=== PATIENT | male | born 1960 | race Caucasian/White ===

== ENCOUNTER → 2018-07-23 11:42 | Outpatient (CLI) | payer OTHER, SELFPAY ==
--- NOTE | 2018-07-23 | DI.US.S_ITS ---
PROCEDURE: US PERIPH VENOUS LOW EXTREM LT INDICATIONS: LEFT LEG SWELLING TECHNIQUE: Real-time imaging, as well as color and pulse Doppler interrogation, were performed of the lower extremity deep veins from the inguinal ligament to the popliteal fossa. COMPARISON: None. FINDINGS: There are occlusive filling defects involving the [id number] superficial femoral vein and popliteal vein consistent with deep venous thrombosis. IMPRESSION: Deep venous thrombosis involving the superficial femoral vein and popliteal vein. Dr. Ma was informed of the result by Pellet [employer] Operator Alexus on 07/23/2018 at 1235 hours. Dictated by: Gregorio Briggs M.D. on 07/23/2018 at 12:31 Approved by: Gregorio Briggs M.D. on 07/23/2018 at 18:08
== END ==
PROVIDERS: Family Provider Family Medicine; PCP Family Medicine; Visit Provider Family Medicine
DX: I82.432 Acute embolism and thrombosis of left popliteal vein (principal); I82.412 Acute embolism and thrombosis of left femoral vein
CPT/HCPCS: 93971

== ENCOUNTER 2018-07-30 09:50 | Observation (INO) | payer OTHER, SELFPAY ==
--- NOTE | 2018-07-30 | DI.CT.S_ITS ---
PROCEDURE: CT ANGIO CHEST PE PROTOCOL INDICATIONS: DVT/COUGH TECHNIQUE: After the administration of intravenous contrast, 2 mm thick sections acquired from the pulmonary apices to the posterior costophrenic angles. 3-dimensional maximum intensity projection (MIP) coronal and sagittal reformats were then acquired through the thorax. For radiation dose reduction, the following was used: automated exposure control, adjustment of mA and/or kV according to patient size. COMPARISON: None. FINDINGS: Image quality: Excellent. Pulmonary arteries: Nonocclusive thrombus is present within the distal aspect of the right main pulmonary artery. Partially occlusive thrombus is present within the distal aspect of the left main pulmonary artery. Nonocclusive thrombus is present bilaterally within the segmental and subsegmental branches of the pulmonary arteries. Lungs and pleura: Lungs are clear. No pleural effusions or pneumothorax. Central and peripheral airways are patent. Mediastinum: Heart size is normal, without pericardial effusion. No leftward bowing of the interventricular septum to suggest right heart strain. No mediastinal or hilar adenopathy. Thoracic aorta is normal in caliber and enhancement. Esophagus is normal in caliber, without hiatal hernia. Bones and chest wall: No suspicious bony lesions. Ribs and thoracic spine appear intact throughout. Thyroid gland is unremarkable. No axillary or supraclavicular adenopathy. Abdomen: Visualized upper abdominal solid organs appear normal in the early arterial phase of enhancement. IMPRESSION: 1. Partially occlusive thrombus within the bilateral main pulmonary arteries with nonocclusive thrombus in the segmental and subsegmental branches bilaterally. 2. No leftward interventricular septal bowing to suggest right heart strain. These findings were discussed with Dr. Sanders at 9:31 AM on 07/30/18. Dictated by: Rosalinda Flaherty M.D. on 07/30/2018 at 9:25 Approved by: Rosalinda Flaherty M.D. on 07/30/2018 at 9:31
[2018-07-30 10:37] VITALS: BMI 35.4
--- NOTE | 2018-07-30 11:15 | PC.NURSE ---
PT ADMITTED TO ICU ROOM [facility] ACUTE CARE PT. HE HAS BILAT PE'S (NON OBSTRUCTING) AND RECENT HX. DVT LEFT LOWER EXTREMITY- SLIGHTLY HYPERTENSIVE UPON ADMISSION 129/90, DENIES PAIN AND OR SOB- DID REPORT RECENT COUGHING.
[2018-07-30 11:18] VITALS: BP 129/90; PULSE 87; RESP 14; TEMP 36.6; O2SAT 98
[2018-07-30] MEDS: INFLUENZA VACCINE 0.5 ML SYRINGE IM (11:23)
[2018-07-30] MEDS: ENOXAPARIN 100 MG/ML SYRINGE SUBCUT ×2 (13:06→20:43)
[2018-07-30] MEDS: ENOXAPARIN 30 MG/0.3 ML SYRINGE SUBCUT ×2 (13:07→20:43)
[2018-07-30 13:15] VITALS: PULSE 79; RESP 14; O2SAT 97
--- NOTE | 2018-07-30 13:20 | P.HP_ITS ---
History of Present Illness Date Patient Seen: 07/30/18 Time Patient Seen: 13:20 Chief complaint: DVT/COUGH Narrative: Patient seen in response to increasing left leg pain and cough. Patient was diagnosed with DVT last week and started on Coumadin. No bridging. He has been progressively getting increasing thigh pain with redness and has been having an increasing cough which has worsened over the last 48 hr. Patient has had left leg pain since maybe late May. He has no history of travel. No history of trauma. No history of surgery. Has otherwise been feeling well without significant other complaints or problems. No previous history of DVTs or other clotting abnormalities. No family history of any significant abnormalities. Patient had ultrasound last week which showed a left-sided DVT. He really was only having pain in his calf at that time. Over the last week his slowly been increasing in pain and swelling in his inside of his thigh on the left side. Did not seem to be getting any better. Has not been able to sleep. No other changes. No fevers or chills. No headaches. Patient's cough started he thinks after he started noticing his left calf discomfort. He has no other significant new changes. He has had no changes but has been coughing both day and night. Over the last 48 hr that seems to be getting worse more intense. Had some mild shortness of breath but has had no chest pain or other changes. Has not had any production. It has been a very weird cough for him. No other changes. Patient had been placed on Coumadin last week. Yesterday was started on Eliquis had 1 dose this morning. Dose was supposed to be 10 mg twice a day for a week and then 5 mg twice a day. No other changes. Patient otherwise has no significant new complaints or problems. Past medical history. History of skin cancer squamous and basal cell History of hyperlipidemia History of polyneuropathy etiologies unclear primarily affecting his feet Past surgical history 2006 meniscus tear with surgical repair Family history significant for alcoholism in both mother and father, mother with history of colon cancer age 57, father CVA with at 69. Father had diabetes. Mother had heart disease at 42. Sister 10 months older hypertension gallbladder disease Social history [employer] manager, , no children, bachelor of arts. Habits occasional alcohol, no tobacco no other drugs. Patient History Social History household members: spouse Smoking Status: Never smoker Family & Social History Social History: household members spouse Prior Living Arrangements House Safety & Behavioral: Feels Safe in Current Yes Environment Been Physically Hurt or No Threatened By a Person Suicidal Ideation Description None Suicide Plan Description No Plan Tobacco & Substance use: Smoking Status Never smoker alcohol intake frequency holiday/special occasion Meds Home Medications Medication Instructions Recorded Confirmed Type atorvastatin [Lipitor] 20 mg PO HS #30 tab 04/03/16 07/30/18 History apixaban [Eliquis] 10 mg PO BID 07/30/18 07/30/18 History Allergies Allergy/AdvReac Type Severity Reaction Status Date / Time No Known Drug Allergies Allergy Verified 07/30/18 11:12 Review of Systems Review of Systems All systems reviewed & are unremarkable except as noted in HPI and below Exam Vital Signs (past 8 hours): - 07/30/18 11:18 Temperature 97.9 F Pulse Rate 87 Respiratory Rate 14 Blood Pressure 129/90 Pulse Oximetry 98 Oxygen Delivery Method Room Air Oxygen Flow Rate 0 Narrative Exam Narrative: Alert obese male in no acute distress. Mucous membranes are moist. Neck supple without adenopathy JVD or bruits. Lungs are clear. Heart's regular rate and rhythm without murmurs clicks rubs or gallops. Abdomen is soft positive bowel sounds nontender. Extremities right is normal left shows calf tenderness with moderate swelling no cords that I can palpate. He has got erythema on the medial aspect of the thigh with tenderness up to almost the groin. No definitive swelling otherwise. Normal pulses. No edema. Neurologic exam is unremarkable. Psychologically mildly fatigued but otherwise unremarkable Objective Labs Labs: Laboratory Results - last 24 hr 07/30/18 11:00 Nasal Screen MRSA (PCR) Negative for mrsa Assessment & Plan Assessment & Plan narrative: Bilateral pulmonary embolus with partial obstr uction of main pulmonary arteries bilateral by CT scan. We discussed this. Patient is clearly worsened over the last week with increasing leg pain and now worsening cough which probably is his pulmonary embolus. Unsure how long they have been definitively present but certainly concerned that these may be life- threatening. Had started on Eliquis yesterday which takes at least 24 hr to get started. Discussed with pharmacist will place on Lovenox for the next day or 2 get things started on his anticoagulation then begin Eliquis again as of the dose when Lovenox is due. Currently pulmonary stable. Does not appear to be in cardiac issues but will obtain EKG. Will place on monitor and follow closely hopefully will be able to discharge in the next 48 hr. Patient will need hematologic evaluation for non provoked pulmonary embolus and DVT. We will be able to do as outpatient. DVT left leg treatment with Lovenox and then Eliquis as above. History of hypercholesterolemia. Will place on usual medicine. History of polyneuropathy not an issue at this time. GI prophylaxis not indicated at this time. Disposition. Patient is at significant risk for terminal illness will cover with Lovenox and watch closely. Hopefully discharge in the next 48 hr. Quality VTE Deep Vein Thrombosis/Pulmonary Embolism Present on Admission: Yes
[2018-07-30 16:00] VITALS: BP 119/80; PULSE 76; RESP 20; TEMP 37.4; O2SAT 95
[2018-07-30 16:20] VITALS: BP 129/83; PULSE 76; RESP 20; TEMP 36.9; O2SAT 96
[2018-07-30 16:49] VITALS: O2SAT 96
--- NOTE | 2018-07-30 18:05 | PC.NURSE ---
1620: pt arrived from ICU. A&OX3. 96%RA. denied pain, SOB or nausea. no calf pain. PP++. CMS+. oriented pt to the room. call light in reach.
[2018-07-30] MEDS: ATORVASTATIN 20 MG TABLET PO (20:42)
[2018-07-30 20:52] VITALS: BP 113/72; PULSE 72; RESP 18; TEMP 36.8
[2018-07-31] VITALS (9 sets, daily range): BP systolic 105–123; BP diastolic 60–75; PULSE 69–78; RESP 16–18; TEMP 36.6–37.2; O2SAT 95–98
[2018-07-31 06:22] LABS: Add Manual Diff / Slide Review NO; Basophils Absolute Auto 100 /uL (0-100); Eosinophils Absolute Auto 300 /uL (0-450); Eosinophils Percent Auto 4.2 % (2-4); Hematocrit 40.9 % (41-53); Hemoglobin 13.5 g/dL (13.5-17.5); Lymphocytes Absolute Auto 1300 /uL (1100-4500); Lymphocytes Percent Auto 20.3 % (25-40); Mean Corpuscular Hemoglobin 30.1 PG (26-34); Mean Corpuscular Volume 91.3 fL (80-100); Monocytes Absolute Auto 800 /uL (0-900); Monocytes Percent Auto 12.7 % (3-14); Neutrophils Absolute Auto 3800 /uL (1500-7000); Neutrophils Percent Auto 61.8 % (50-75); Platelet Count 379 X10^3/uL (150-400); Red Blood Cell Count 4.48 X10^6/uL (4.5-5.9); Red Cell Distribution Width 12.6 % (11.6-14.8); White Blood Cell Count 6.2 X10^3/uL (4.5-11.0)
[2018-07-31] MEDS: SODIUM CHLORIDE 0.9% FLUSH 10 ML IV ×2 (08:23→20:42)
[2018-07-31] MEDS: ENOXAPARIN 100 MG/ML SYRINGE SUBCUT ×2 (08:23→20:41)
[2018-07-31] MEDS: ENOXAPARIN 30 MG/0.3 ML SYRINGE SUBCUT ×2 (08:23→20:41)
--- NOTE | 2018-07-31 08:55 | P.PN_ITS ---
Subjective Date Patient Seen: 07/31/18 Time Patient Seen: 08:52 Interval history: Feels fine, no chest pain or breathing issues has been up and around with no problems no other complaints. Exam Vital Signs (past 8 hours): - 07/31/18 01:10 07/31/18 06:00 07/31/18 08:15 Temperature 97.9 F Pulse Rate 69 Respiratory Rate 18 Blood Pressure 117/69 Pulse Oximetry 95 97 96 07/31/18 08:24 Temperature 98.6 F Pulse Rate 74 Respiratory Rate 18 Blood Pressure 121/73 Pulse Oximetry 96 Oxygen Delivery Method Room Air Oxygen Flow Rate 0 Narrative Exam Narrative: Healthy appearing lying quietly no distress appropriately interactive. HEENT unremarkable neck is benign chest is clear heart has a regular rate and rhythm without murmur abdomen soft nontender nondistended no organomegaly or mass no bruit extremities benign neurologically not focal Objective Labs Result Diagrams: 07/31/18 06:07 Labs: Laboratory Results - last 24 hr 07/30/18 07/31/18 11:00 06:07 WBC 6.2 RBC 4.48 L Hgb 13.5 Hct 40.9 L MCV 91.3 MCH 30.1 MCHC 33.0 RDW 12.6 Plt Count 379 Neut % (Auto) 61.8 Lymph % (Auto) 20.3 L [place] % (Auto) 12.7 Eos % (Auto) 4.2 H Baso % (Auto) 1.0 Neut # (Auto) 3800 Lymph # (Auto) 1300 [place] # (Auto) 800 Eos # (Auto) 300 Baso # (Auto) 100 Nasal Screen MRSA (PCR) Negative for mrsa Assessment & Plan Assessment & Plan narrative: Pulmonary embolus, bilateral, without apparent risk factors. Continue Lovenox plan on starting Eliquis tomorrow morning and then discharged at that time. DVT, this was more symptomatic presumably could contributed to above although timing is a little uncertain. Continue same as noted. Coagulopathy suspected. As noted patient above has no typical risk factors so suspect an underlying pathology of some sort. Will evaluate as an outpatient. Time Spent With Patient Time with patient: 15-24 minutes Quality VTE Deep Vein Thrombosis/Pulmonary Embolism Present on Admission: Yes
[2018-07-31] MEDS: ATORVASTATIN 20 MG TABLET PO (20:41)
[2018-08-01 06:00] VITALS: BP 112/72; PULSE 111; RESP 18; TEMP 36.5; O2SAT 98
[2018-08-01 06:43] VITALS: PULSE 71; O2SAT 98
[2018-08-01] MEDS: SODIUM CHLORIDE 0.9% FLUSH 10 ML IV (08:16)
[2018-08-01] MEDS: APIXABAN 5 MG TABLET 10 MG PO (08:16)
--- NOTE | 2018-08-01 08:52 | CM.DANOTE ---
Discharge Planning/Care Management DCP: case received, EMR reviewed and including Dr. Dorsey's progress note and plan. Pt is a 58 year old male who admitted yesterday to care of PCP: Dr. Esparza. Payer: [employer]. Pt is being treated for bilateral PEs with plan to transition from Lovenox to Eliquis and home with outpt clinic followup. He is up independently in room. P: will follow prn for any needs that may arise at d/c but at this point anticipate he will d/c to home here in [place] as per above. CM Discharge Assessment Start: 08/01/18 08:51 Freq: Status: Active Protocol: Document 08/01/18 08:51 ITV (Rec: 08/01/18 08:52 ITV [id number]) Discharge Planning Assessment Advance Directives? No History Provided By Patient Significant Other Prior Living Arrangements House Household Members spouse Independent with ADL's Yes Is patient alert and oriented? Yes Review Status In Process Next Review Type Continued Stay Review
[2018-08-01 10:00] VITALS: BP 137/77; PULSE 80; RESP 18; TEMP 36.6; O2SAT 99
--- NOTE | 2018-08-01 10:52 | PM.DS.1 ---
History of Present Illness Date Patient Seen: 08/01/18 Time Patient Seen: 10:52 Chief complaint: DVT/COUGH Narrative: See H&P Discharge Providers Date of admission: 07/30/18 09:50 Primary care physician: Duncan Esparza MD Discharge provider: Rohan Dorsey MD Discharge Date: 08/01/18 Summary Discharge Diagnosis: Lower extremity DVT Bilateral pulmonary emboli Cough Hyperlipidemia Hospital Course: Patient had been found week before with DVT after complaints of leg pain. Although no significant risk factors were identified. Was started on Coumadin. The next week he was seen and complained of a persistent cough a chest CT that suggested bilateral pulmonary emboli. He had no complaints of shortness of breath or chest pain has otherwise felt well. Throughout the hospitalization this has remained still with a bit of a cough that is more nagging, and dry, but no other symptoms. Has been up and around without restriction. Again no significant apparent family history, except that his father after multiple CVAs, and his mother in her 50s of CAD. Had been treated with Lovenox therapeutic dosing from admission to the night before discharge then the morning of discharge was placed on the starting dose of Eliquis. Stable otherwise as far as vital signs SaO2 etc. Status at Discharge Cognitive/behavioral status at discharge: No change Functional status at discharge: independent ambulation Time Spent with Patient Greater than 30 minutes Exam Vital Signs (past 8 hours): - 08/01/18 06:00 08/01/18 06:43 08/01/18 10:00 Temperature 97.7 F 97.8 F Pulse Rate 111 H 71 80 Respiratory Rate 18 18 Blood Pressure 112/72 137/77 Pulse Oximetry 98 98 99 Oxygen Delivery Method Room Air Oxygen Flow Rate 0 Objective Labs Result Diagrams: 07/31/18 06:07 Discharge Plan Discharge Plan Patient Disposition: Home Discharge comment: stable Discharge Med Rec/Prescriptions Prescriptions: Continued atorvastatin [Lipitor] 20 MG tablet 20 mg PO HS Qty: 30 RF: 0 Eliquis 5 mg Tablet 10 mg PO BID RF: 0 Follow up/Referrals: Duncan Esparza MD [Primary Care Provider] - 3-5 Days Provider Discharge Instructions Diet: Diet as Tolerated Activity: as jose david Discharge Data Primary Care Provider: Duncan Esparza Attending Provider: Duncan Esparza Admit Date/Time: 07/30/18 09:50 Quality VTE Deep Vein Thrombosis/Pulmonary Embolism Present on Admission: Yes
== END 2018-08-01 11:45 | disposition home or self-care (01) ==
LOC: ICU 11:01 → AC 07-31 07:31
PROVIDERS: Admitting Provider Family Medicine; Family Provider Family Medicine; PCP Family Medicine; Visit Provider Family Medicine
DX: I26.99 Other pulmonary embolism without acute cor pulmonale (principal); R05 Cough; I82.412 Acute embolism and thrombosis of left femoral vein; M79.652 Pain in left thigh; E78.00 Pure hypercholesterolemia, unspecified; Z23 Encounter for immunization
CPT/HCPCS: 36415; 71275; 85025; 87797; 90471; 90656; 93005; G0378; G0379; J1650; Q2038; Q9967

== ENCOUNTER → 2018-09-03 14:01 | Outpatient (CLI) | payer OTHER, SELFPAY ==
--- NOTE | 2018-09-03 14:04 | DI.US.S_ITS ---
PROCEDURE: US PERIP VENOUS LOW EXTREM LT INDICATIONS: FOLLOW-UP DVT TECHNIQUE: Real-time imaging, as well as color and pulse Doppler interrogation, were performed of the lower extremity deep veins from the inguinal ligament to the popliteal fossa. COMPARISON: [facility], [facility] VENOUS LOW EXTREM LT, 07/23/2018, 12:03. FINDINGS: Deep venous thrombosis is now seen involving the proximal, mid and distal left superficial femoral as well as the popliteal vein. IMPRESSION: The known left lower extremity deep venous thrombosis now seen involving the entire course of the superficial femoral as well as the popliteal vein where there is partial thrombus. Dictated by: Nicho Jackson [facility] Interpreted: Brendon Denise MD on 09/03/2018 at 14:36 Approved by: Brendon Denise M.D. on 09/03/2018 at 16:12
== END ==
PROVIDERS: PCP Family Medicine
DX: I82.412 Acute embolism and thrombosis of left femoral vein (principal); I82.432 Acute embolism and thrombosis of left popliteal vein; I26.99 Other pulmonary embolism without acute cor pulmonale
CPT/HCPCS: 93971

== ENCOUNTER → 2020-03-29 10:00 | Oncology outpatient (ONC) | payer OTHER, SELFPAY ==
[2018-09-02 12:44] VITALS: BP 143/88; PULSE 72; RESP 18; TEMP 36.8; O2SAT 98
--- NOTE | 2018-09-02 13:37 | P.CONONC_ITS ---
History of Present Illness - Data of Consult Patient: new to practice Consult date: 09/02/18 Primary Care Provider: Duncan Esparza MD - Consult Narrative Narrative: Diagnosis: Left lower extremity DVT and pulmonary embolism diagnosed July 2018 History of present illness: Ruyd Sumner is a 58 year old male who is referred for further evaluation of a recent thromboembolism. The patient notes that he had some pain and swelling in his left lower extremity had been sent for a couple of months. He was seen by his primary physician and had an ultrasound performed. It demonstrated extensive DVT involving the superficial femoral vein and popliteal vein. He also had some cough. Because of that a CT pulmonary angiogram was done. It did demonstrate subsegmental emboli and nonocclusive emboli in the main pulmonary arteries. He was treated with Lovenox followed by Giovanna. He reports that he has been tolerating the Eliquis well. He has not had any epistaxis. He has noted occasional bleeding from his gums. No blood in the urine or stool. He has not noticed any increased bruising. His breathing has returned to baseline. He is not having any cough for chest pain. He does still have some swelling and erythema in his left leg. The pain has resolved though. He denies any prior history of clotting. He does not smoke. He did not have any recent trauma or immobilization. There is no family history of thrombosis. His current medications include Eliquis and Lipitor. Social history: He is . He works at the [employer] supervising the [employer]. He does not smoke. He does have occasional alcohol use. He also is other sports coach or instructor. Family history is negative for any thromboembolism. His mother did have cancer. His past medical history is notable for high cholesterol. He has had neuropathy involving his feet. He has had prior arthroscopic knee surgery about 10 years ago. He has otherwise been quite healthy. CC: Flaco Aguilera MD Home Medications and Allergies Home Medications Medication Instructions Recorded Confirmed Type atorvastatin [Lipitor] 20 mg PO HS #30 tab 04/03/16 07/30/18 History Eliquis 10 mg PO BID 07/30/18 07/30/18 History Allergies Allergy/AdvReac Type Severity Reaction Status Date / Time No Known Drug Allergies Allergy Verified 07/30/18 11:12 Medical History - Social History Smoking Status: Never smoker Review of Systems Constitutional: fair state of general health, able to conduct usual activities Cardiovascular: no chest pain, no syncope, no dyspnea on exertion Respiratory: no cough Gastrointestinal: no change in appetite Musculoskeletal: swelling, redness Integumentary: no bleeding or bruising Exam Vital signs: Vital Signs Temp Pulse Resp BP Pulse Ox 09/02/18 12:44 98.2 F 72 18 143/88 H 98 Intake and Output 09/01/18 09/02/18 09/02/18 23:59 07:59 15:59 Other: Weight 133.5 kg Patient Weight 09/02/18 23:59 Weight 133.5 kg - Constitutional positive no acute distress, positive obese - Routine HEENT Exam Head: Present: normocephalic, atraumatic Eye: Present: EOMI, PERRL. Absent: conjunctival icterus, scleral injection ENT: Present: mucous membranes moist, oropharynx clear, dentition normal - Routine Neck Exam Present: supple. Absent: lymphadenopathy, thyromegaly - Routine Respiratory Exam Present: Clear to auscultation bilaterally. Absent: rales, wheezes - Routine Cardiovascular Exam Present: RRR, S1, S2. Absent: murmur - Routine Abdominal Exam Present: soft, normoactive bowel sounds. Absent: tenderness, organomegaly, mass - Routine Extremities Exam Comments: His left lower extremity has 2+ edema extending up to the knee. There is some redness of the skin. There is no tenderness to palpation and no palpable cords. - Routine Back/Spine Exam Back/Spine: Absent: paraspinal tenderness, vertebral tenderness - Routine Skin Exam Present: intact. Absent: petechiae, wounds - Routine Neurological Exam Present: alert, oriented X3 - Routine Psychiatric Exam Present: normal affect, normal thought process Assessment and Plan (1) Thromboembolism Current visit: Yes Status: Acute 58-year-old man with an unprovoked left lower extremity DVT and pulmonary embolism. He is tolerating his anticoagulation well with resolution of his pulmonary symptoms. He still has some swelling and erythema the leg. He did not have any identifiable risk factor in his family history is negative. Fabiolalucho jose this was an unprovoked episode and because of his age in male sex, I think his likelihood of recurrence after short course of anticoagulation is sufficiently high to warrant indefinite treatment. Even if hypercoagulable testing was negative, I think that I would still recommend that he continue on with therapy. He does have some ongoing symptoms in his legs that are suggestive of a post phlebitic syndrome. We will plan on rechecking an ultrasound just to make sure that there has been improvement. Will also make a referral to physical therapy. I think that he would benefit from a compression dressing or stocking. I also recommend that he try to elevate his leg as much as possible. I think it is safe for him to resume exercise as tolerated. I did recommend that he try to avoid prolonged immobilization if he does travel in the near future. He will return to clinic after his ultrasound for follow-up.
--- NOTE | 2018-09-03 17:22 | PC.NURSE ---
Pt phoned to express concern r/t to recent ultra sound, according to pt he was under the impression his LLE clot was getting longer. PT denies increased swelling since seen by provider yesterday, denies increased tenderness or redness, or temperature increase to affected extremity. Explained to pt that this brief writer was able to view recent US result because they were not available yet. Pt reports he his currently on anticoagulation therapy. Denies chest pain and SOB. Instructed pt to call primary provider, pt states I left him a message on the portal. Pt further states they are good at getting back to me. Reviewed s/s of PE and when to seek emergency medical treatment, pt verbalizes understanding, states oh, I know. Pt agrees to call Dr. Sanders's office in the morning if his message has not been returned before that time. Pt also agreeable to seek emergency treatment if symptoms increase to LLE.
--- NOTE | 2018-09-08 09:51 | ONC.NAV ---
Description: New Pt Intro Activity: Met with pt to introduce myself as the Pt [employer] SCIENC[employer], offer services card, and establish initial rapport. Pt presents as irritable, expressing feeling frustrated that the swelling in his leg hasn't gone down, yet it hasn't slowed him down in his ADL's. 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 [employer] SCIENC[employer] TEACHER briefly explained the availability of navigation, resource assistance and support. He denied the need for assistance at this time. Plan: Monitor for ongoing assistance needs.
[2018-09-08 09:53] VITALS: BP 144/109; PULSE 64; RESP 16; TEMP 37.1; O2SAT 98
--- NOTE | 2018-09-08 10:28 | ONC.SCHED ---
PT referral-patient was referred to be fitted for compression sock. PT does not do that and [facility] was kind enough to bring up information on who they thought could do that for the patient. I gave the information to the patient at his / visit with Dr. Aguilera.
--- NOTE | 2018-09-08 12:55 | ONC.PN ---
PN -Subjective Interval history: Diagnosis: Left lower extremity DVT and pulmonary embolism diagnosed July 2018 Previous treatment: Low molecular weight heparin followed by [facility]. He is currently on 5 mg b.i.d. Interval history: Patient returns today for follow-up. Since his last visit here, he has been bothered by ongoing swelling in his left lower extremity. It has not been painful. He has been able to go about all of his normal activities. He does have some dusky coloration to the skin but no erythema. He is not having any claudication symptoms. No fevers chills or sweats. No shortness of breath cough chest pain dizziness or lightheadedness. Appetite and energy level have been stable. No GI complaints. He has not noticed any unusual bleeding or bruising. He has not had any other bleeding complaints. His past medical history is notable for high cholesterol. He has had neuropathy involving his feet. He has had prior arthroscopic knee surgery about 10 years ago. He has otherwise been quite healthy. His medications include only Lipitor and Eliquis. Home Medications and Allergies Home Medications Medication Instructions Recorded Confirmed Type atorvastatin [Lipitor] 20 mg PO HS #30 tab 04/03/16 09/08/18 History Eliquis 10 mg PO BID 07/30/18 09/08/18 History Allergies Allergy/AdvReac Type Severity Reaction Status Date / Time No Known Drug Allergies Allergy Verified 07/30/18 11:12 Exam Vital signs: Vital Signs Temp Pulse Resp BP Pulse Ox 09/08/18 09:53 98.8 F 64 16 144/109 H 98 Intake and Output 09/07/18 09/08/18 09/08/18 23:59 07:59 15:59 Other: Weight 133.6 kg Patient Weight 09/08/18 23:59 Weight 133.6 kg - Routine Extremities Exam Present: edema Comments: He does have 2+ lower extremity edema on the left. There is no tenderness to palpation. I do not feel any cords. Assessment and Plan (1) Thromboembolism Current visit: Yes Status: Acute 58-year-old man with an unprovoked left lower extremity DVT and pulmonary embolism. He is tolerating his anticoagulation well with resolution of his pulmonary symptoms. He still has some swelling and erythema the leg. His lower extremity ultrasound demonstrated some progression of his superficial femoral vein thrombosis in to the proximal portion from the mid and distal previously. We reviewed the natural history of thromboembolism. I did point out that the goal of anticoagulation was to prevent propagation recurrence of clots and to allow the normal organization of clot process to occur it appears that in his case, there has been extension of the clot despite anticoagulation with Eliquis. The optimal treatment of failure of anticoagulation is not known. We discussed the option of adding aspirin to the Eliquis, changing to low-molecular weight heparin or changing to Coumadin. Because of his large size, I think it is reasonable to check anti Xa level to make sure that his dosing is therapeutic. 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 He does have an appointment pending with physical therapy for further evaluation of that and for fitting of a compression garment. He will return to clinic here in 1 week for follow-up. A 25 min was spent with the patient and his , the majority in counseling.
[2018-09-29 15:34] VITALS: BP 124/89; PULSE 64; RESP 18; TEMP 36.7; O2SAT 98
--- NOTE | 2018-09-29 15:57 | ONC.PN ---
PN -Subjective Interval history: Diagnosis: Left lower extremity DVT and pulmonary embolism diagnosed July 2018 Previous treatment: Low molecular weight heparin followed by [facility]. He is currently on 5 mg b.i.d. Interval history: Patient returns today for follow-up. Since his last visit here, he has been feeling better. He did get fitted for a compression stocking on his leg. He has been wearing it during the days. The swelling in his feet and legs has improved. He is able to wear shoe more easily. He is not having any pain in the leg. He denies any shortness of breath cough for chest pain. He has not had any bleeding complications and denies any epistaxis or gingival bleeding. No blood in the urine or stool. No fevers chills or sweats. He denies any other changes in his health. He tells me that he is scheduled for some Mohs surgery for skin cancer. His past medical history is notable for high cholesterol. He has had neuropathy involving his feet. He has had prior arthroscopic knee surgery about 10 years ago. He has otherwise been quite healthy. His medications include only Lipitor and Eliquis. - Patient Self-Reported Symptoms SR Musculoskeletal issues: Muscle pain or cramps Home Medications and Allergies Home Medications Medication Instructions Recorded Confirmed Type atorvastatin [Lipitor] 20 mg PO HS #30 tab 04/03/16 09/29/18 History Eliquis 5 mg PO BID 07/30/18 09/29/18 History acetaminophen [Tylenol 8 Hour] 650 mg PO Q12H PRN 09/29/18 09/29/18 History aspirin [Aspir-81] 81 mg PO DAILY 09/29/18 09/29/18 History Allergies Allergy/AdvReac Type Severity Reaction Status Date / Time No Known Drug Allergies Allergy Verified 07/30/18 11:12 Exam Vital signs: Vital Signs Temp Pulse Resp BP Pulse Ox 09/29/18 15:34 98.1 F 64 18 124/89 98 Intake and Output 09/28/18 09/29/18 09/29/18 23:59 07:59 15:59 Other: Weight 135.4 kg Patient Weight 09/29/18 23:59 Weight 135.4 kg - Constitutional positive no acute distress, positive average body habitus - Routine Extremities Exam Comments: Limited exam of the lower extremity shows some mild to trace edema on the left. He does have some venous stasis changes in the skin. There is no ecchymoses or petechiae. There is no tenderness or palpable cords. Results - Labs Laboratory Last Values Ref Test (Refrig) 09/08/18 11:02 Assessment and Plan (1) Thromboembolism Current visit: Yes Status: Acute 58-year-old man with an unprovoked left lower extremity DVT and pulmonary embolism. He has been doing better with the addition of low-dose aspirin to his regimen. Anti factor Xa levels were therapeutic. The compression stocking seem to be helping his leg as well. He will continue with his current regimen. He will return to clinic in 6 months for follow-up.
[2019-03-31 15:25] VITALS: BP 136/88; PULSE 83; RESP 18; TEMP 36.8; O2SAT 97
--- NOTE | 2019-03-31 16:22 | ONC.PN ---
PN -Subjective Interval history: Diagnosis: Left lower extremity DVT and pulmonary embolism diagnosed July 2018 Previous treatment: Low molecular weight heparin followed by [facility]. He is currently on 5 mg b.i.d. Interval history: Patient returns today for follow-up. Since his last visit here, he has been feeling about the same. He continues to have some trouble with swelling in his legs. If he wears a compression stocking, that keeps it to a minimal amount. He is not having any pain in the leg. He denies any shortness of breath cough chest pain or dizziness. Appetite and energy level have been good. He has had some increased bruising and some minor bleeding. He occasionally has some bleeding from his gums when he floss is. He has had an episode of epistaxis that stopped. He has not noticed any blood in the urine or stool. He denies any other bleeding complications. He denies any other changes in his health. His past medical history is notable for high cholesterol. He has had neuropathy involving his feet. He has had prior arthroscopic knee surgery about 10 years ago. He has otherwise been quite healthy. His medications include only Lipitor and Eliquis. - Patient Self-Reported Symptoms SR Musculoskeletal issues: Joint pain or swelling SR Neuro issues: Numbness or tingling Home Medications and Allergies Home Medications Medication Instructions Recorded Confirmed Type atorvastatin [Lipitor] 20 mg PO HS #30 tab 04/03/16 03/31/19 History Eliquis 5 mg PO BID 07/30/18 03/31/19 History acetaminophen [Tylenol 8 Hour] 650 mg PO Q12H PRN 09/29/18 03/31/19 History aspirin [Aspir-81] 81 mg PO DAILY 09/29/18 03/31/19 History Allergies Allergy/AdvReac Type Severity Reaction Status Date / Time No Known Drug Allergies Allergy Verified 07/30/18 11:12 Exam Vital signs: Vital Signs Temp Pulse Resp BP Pulse Ox 03/31/19 15:25 98.3 F 83 18 136/88 97 Intake and Output 03/31/19 03/31/19 03/31/19 07:59 15:59 23:59 Other: Weight 138.3 kg Patient Weight 03/31/19 23:59 Weight 138.3 kg - Constitutional positive no acute distress, positive average body habitus - Routine HEENT Exam Head: Present: normocephalic, atraumatic Eye: Present: EOMI, PERRL. Absent: conjunctival icterus, scleral injection ENT: Present: mucous membranes moist, oropharynx clear - Routine Neck Exam Present: supple. Absent: lymphadenopathy, thyromegaly - Routine Respiratory Exam Present: Clear to auscultation bilaterally. Absent: rales, wheezes - Routine Cardiovascular Exam Present: RRR, S1, S2. Absent: murmur - Routine Abdominal Exam Present: soft, normoactive bowel sounds. Absent: tenderness, organomegaly, mass - Routine Extremities Exam Present: edema. Absent: cyanosis, clubbing Comments: He has 1+ lower extremity edema on the left. - Routine Skin Exam Present: intact. Absent: petechiae, rash - Routine Neurological Exam Present: alert, oriented X3 - Routine Psychiatric Exam Present: normal affect, normal thought process Results - Labs Laboratory Last Values Ref Test (Refrig) 09/08/18 11:02 Assessment and Plan (1) Thromboembolism Current visit: Yes Status: Acute 58-year-old man with an unprovoked left lower extremity DVT and pulmonary embolism. He will continue on indefinite anticoagulation. He will return to clinic in 1 year for follow-up.
[2020-03-29 10:25] VITALS: BP 146/83; PULSE 66; RESP 18; TEMP 36.9; O2SAT 98
--- NOTE | 2020-03-29 11:17 | P.PNONC_ITS ---
PN -Subjective Interval history: Diagnosis: Left lower extremity DVT and pulmonary embolism diagnosed July 2018 Previous treatment: Low molecular weight heparin followed by [facility]. He is currently on 5 mg b.i.d. Interval history: Patient returns today for follow-up. Since his last visit here, he has been feeling about the same. He continues to have some trouble with swelling in his legs. If he wears a compression stocking, that keeps it to a minimal amount. He is not having any pain in the leg. He denies any shortness of breath cough chest pain or dizziness. Appetite and energy level have been good. He has had some increased bruising and some minor bleeding. He occasionally has some bleeding from his gums when he floss is. He has had an episode of epistaxis that stopped. He has not noticed any blood in the urine or stool. He denies any other bleeding complications. He denies any other changes in his health. His past medical history is notable for high cholesterol. He has had neuropathy involving his feet. He has had prior arthroscopic knee surgery about 10 years ago. He has otherwise been quite healthy. His medications include only Lipitor and Eliquis. He is generally doing well and does not have any problems with pain, bleeding, localized weakness, fever, chills, nausea, vomiting, cough, shortness of breath, anorexia, unintended weight loss, mouth sores, trouble swallowing, rash, or other complaints. All other systems are negative Past medical history is reviewed from his previous notes. - Patient Self-Reported Symptoms SR Musculoskeletal issues: Joint pain or swelling SR Neuro issues: Numbness or tingling Home Medications and Allergies Home Medications Medication Instructions Recorded Confirmed Type atorvastatin [Lipitor] 20 mg PO HS #30 tab 04/03/16 03/29/20 History Eliquis 5 mg PO BID 07/30/18 03/29/20 History acetaminophen [Tylenol 8 Hour] 650 mg PO Q12H PRN 09/29/18 03/29/20 History aspirin [Aspir-81] 81 mg PO DAILY 09/29/18 03/29/20 History Allergies Allergy/AdvReac Type Severity Reaction Status Date / Time No Known Drug Allergies Allergy Verified 07/30/18 11:12 Exam Vital signs: Vital Signs Temp Pulse Resp BP Pulse Ox 03/29/20 10:25 98.4 F 66 18 146/83 H 98 Intake and Output 03/28/20 03/29/20 03/29/20 23:59 07:59 15:59 Other: Weight 138.5 kg Patient Weight 03/29/20 23:59 Weight 138.5 kg Narrative: There was no lymphadenopathy in the cervical, supraclavicular, axillary, inguinal femoral regions. Lungs were clear without wheezes or rales. Heart showed a regular rate and rhythm without murmur, gallop or rub. The abdomen is soft and nontender without organomegaly or masses. Results - Labs Laboratory Last Values Ref Test (Refrig) 09/08/18 11:02 Assessment and Plan (1) Thromboembolism Status: Acute 58-year-old man with an unprovoked left lower extremity DVT and pulmonary emb olism. He will continue on indefinite anticoagulation. He does not have any bleeding issues. We discussed the importance of wearing his support stocking. Will get him back here for follow-up in about 2 years. I explained this would be to assess new developments in anti thrombotic therapy and to make sure that no other medical conditions have developed.
== END ==
PROVIDERS: Family Provider Family Medicine; PCP Family Medicine; Visit Provider Internal Medicine
DX: Z09 Encounter for follow-up examination after completed treatment for conditions other than malignant neoplasm (principal); Z86.718 Personal history of other venous thrombosis and embolism; Z86.711 Personal history of pulmonary embolism; E78.00 Pure hypercholesterolemia, unspecified; Z79.01 Long term (current) use of anticoagulants
CPT/HCPCS: 36415; 85520; 99205; 99213; 99214; 99215

== ENCOUNTER 2022-09-20 09:39 | Day surgery (SDC) | payer OTHER, SELFPAY ==
[2022-09-20] VITALS (7 sets, daily range): BP systolic 96–156; BP diastolic 63–102; PULSE 52–74; RESP 15–17; TEMP 36.3–36.6; O2SAT 95–100; BMI 38.7
--- NOTE | 2022-09-20 | PATH_ITS ---
[facility] Accession Number: [id number] No. of containers..01 Tissue . 01 Material submitted: . rectum - RECTAL POLYPS . 01 Diagnosis: Rectal Polyps, Biopsy: Tubular adenoma x2. Hyperplastic polyp x1. MRV 09/24/2022 1241 Local . 01 Electronically signed: . Geovanna Mendes MD, Pathologist NPI- [id number] . 01 Gross description: . RECTAL POLYPS: Received in formalin are 3 fragment(s) of sumner, soft tissue measuring 0.5 x 0.2 x 0.1 cm to 0.2 x 0.2 x 0.1 cm submitted entirely in 1 cassette(s) /CPE 09/21/2022 0904 Local . 01 Pathologist provided ICD-10: D12.8 . 01 CPT . 674678 Specimen Comment: A courtesy copy of this report has been sent to [facility] Performed at: [address] [facility] [address] [place] [address], [place], [place] [id number] MD Carmelo Prater MD Phone: [phone]
[2022-09-20] MEDS: LACTATED RINGERS 1,000 ML 84 ML IV ×2 (10:08→12:26)
--- NOTE | 2022-09-20 12:24 | PM.HP.1 ---
History of Present Illness History of Present Illness Date Patient Seen: 09/20/22 Time Patient Seen: 12:24 Chief complaint: Screening Colonoscopy Narrative: Mr. Sumner presents today for his 4th colonoscopy, he believes last 3 were done here he is not sure but he thinks there were polyps. He does have a family history his mother had colon cancer. He is not having any concerning symptoms no bleeding or changes in bowel habits. He has no other questions and wants to proceed PFSH Social History household members: spouse Smoking Status: Never smoker Meds Home Medications and Allergies Home Medications Medication Instructions Recorded Confirmed Type atorvastatin 20 mg tablet (Lipitor) 20 mg PO HS #30 tabs 04/03/16 03/29/20 History apixaban 5 mg tablet (Eliquis) 5 mg PO BID 07/30/18 09/20/22 History acetaminophen 650 mg 650 mg PO Q12H PRN Pain (Scale 09/29/18 09/20/22 History tablet,extended release (Tylenol 8 Score 1-3) Hour) aspirin 81 mg tablet,delayed 81 mg PO DAILY 09/29/18 09/20/22 History release (Aspir-) losartan 100 mg PO DAILY 09/20/22 09/20/22 History Allergies Allergy/AdvReac Type Severity Reaction Status Date / Time No Known Drug Allergies Allergy Verified 07/30/18 11:12 Exam Vital Signs (past 8 hours): - 09/20/22 09:55 Temperature 97.3 F L Pulse Rate 74 Respiratory Rate 16 Blood Pressure 156/102 H Pulse Oximetry 98 Oxygen Delivery Method Room Air Oxygen Delivery Method Room Air Const General: cooperative, healthy appearing and comfortable Nutritional Appearance: obese Eyes General: appearance normal, both eyes and all related structures Resp Effort & Inspection: normal respiratory effort and able to speak in complete sentences GI Palpation: soft and No tender Assessment & Plan Assessment and plan (1) Family history of colon cancer in mother: Status: Acute (2) Screening for colon cancer: Status: Acute (3) History of colon polyps: Status: Acute Assessment & Plan narrative: Presents today for screening colonoscopy I discussed the risks benefits and alternatives including but not limited to perforation of the colon and an incomplete exam he fully understands these risks and would like to proceed.
--- NOTE | 2022-09-20 14:31 | PM.OP.COLON ---
Operative Date/Time/Diagnoses Date of procedure: 09/20/22 Time of procedure: 14:31 Pre-op diagnosis: Colon cancer screening, family history of colon cancer Post-op diagnosis: same Procedure & Clinicians Study performed: Colonoscopy and biopsy Same procedure as scheduled: Yes Indications: Colon cancer screening; family history of colon cancer in mother Surgeon: Hemalatha Ramires Procedure Notes Procedure in detail: Patient was taken to the endoscopy suite and placed in a left lateral decubitus position. A time-out was performed. Anesthesiologist induced and maintained conscious sedation throughout the procedure. A digital rectal exam was performed. There were no masses or strictures. Colonoscope was then introduced into the anal canal and advanced. The prep was good Chester bowel prep score of 2. I was able to advance the colonoscope almost all the way to the cecum but was not able to enter fully into the cecum. I did take a photograph and the ileocecal valve and appendiceal orifice are seen from afar. I spent in excess of 30 minutes attempting to intubate the cecum. We tried abdominal pressure, supine positioning and I even asked Dr. Springer my partner to give a try. An after all of these efforts we were still unable to enter the cecum. We did get fairly good views of the cecal area from afar and I think it is safe to say that there was no large polyp or colon cancer in this portion of the colon; however, smaller polyps very well may have been missed. I then withdrew the scope slowly from the right colon and expected the rest of the chronic mucosa for any other polyps. There were 2 separate rectal polyps that were small both of which were removed in total and sent together in 1 specimen jar. The scope was then retroflexed in the hemorrhoidal piles looked normal. Patient tolerated the procedure well and went in good condition to the postoperative care unit. Findings: polyp(s) Specimen(s): other (1. Rectal polyps) Complications: other (Incomplete exam) Post-procedure Plan for aftercare: Repeat colonoscopy in 1-2 years. Recommend follow-up with aeronautical engineer if possible.
== END 2022-09-20 15:05 | disposition home or self-care (01) ==
PROVIDERS: Family Provider Family Medicine; PCP Family Medicine; Referring Provider Surgery; Visit Provider Surgery
PROC: 0DJD8ZZ Inspection of Lower Intestinal Tract, Via Natural or Artificial Opening Endoscopic (ICD-10-PCS; CPT 45378; principal; 2022-09-20 10:45)
DX: Z12.11 Encounter for screening for malignant neoplasm of colon (principal); Z80.0 Family history of malignant neoplasm of digestive organs; D12.8 Benign neoplasm of rectum
CPT/HCPCS: 45380; J2704; J3010

== ENCOUNTER → 2022-12-24 10:20 | Outpatient (CLI) | payer OTHER, SELFPAY ==
--- NOTE | 2022-12-24 10:22 | DI.RAD.S_ITS ---
PROCEDURE: XR KNEE LT 4V INDICATIONS: Left knee pain TECHNIQUE: 4 views of the knee were acquired. COMPARISON: None. FINDINGS: Bones: No fractures or dislocations. No suspicious bony lesions. Moderate tricompartmental degenerative changes of the left knee. Soft tissues: Small joint effusion. No suspicious soft tissue calcifications. IMPRESSION: Moderate tricompartmental osteoarthrosis of the left knee with small joint effusion. No acute fracture or dislocation. Dictated by: Brendon Denise M.D. on 12/24/2022 at 14:37 Approved by: Brendon Denise M.D. on 12/24/2022 at 14:38
== END ==
PROVIDERS: Family Provider Family Medicine; PCP Family Medicine; Referring Provider Family Medicine; Visit Provider Family Medicine
DX: M17.12 Unilateral primary osteoarthritis, left knee (principal); M25.462 Effusion, left knee; M25.562 Pain in left knee
CPT/HCPCS: 73564

== ENCOUNTER → 2023-03-13 13:16 | Outpatient (ROUT) | payer OTHER, SELFPAY ==
[2023-03-13 14:00] LABS: Influenza A - CEPHEID Flu A NEGATIVE (NEGATIVE); Influenza B - CEPHEID Flu B NEGATIVE (NEGATIVE); Respiratory Syncytial Virus Negative (Negative)
[2023-03-13 16:46] LABS: COVID-19 CEPHEID 4-PLEX PCR POSITIVE (Negative)
== END ==
PROVIDERS: Family Provider Family Medicine; PCP Family Medicine; Visit Provider Family Medicine
DX: R42 Dizziness and giddiness (principal); R55 Syncope and collapse
CPT/HCPCS: 0241U